=== PATIENT | female | born 1985 | race Hispanic/Latino ===

== ENCOUNTER 2020-08-24 10:17 | Emergency (ER) | payer OTHER ==
[~2020-08-24] VITALS: Ht 160 cm; Wt 102.1 kg
[2020-08-24 10:23] VITALS: BP 106/63
[2020-08-24] MEDS ORDERED: CETI10TA57 PO (10:46)
[2020-08-24] MEDS ORDERED: PRAZ1CAP5 PO (10:46)
[2020-08-24] MEDS ORDERED: SERT-438 PO (10:46)
[2020-08-24] MEDS ORDERED: ONDANSETRON HCL 4 MG/2 ML VIAL ONE (11:15)
[2020-08-24 11:35] LABS: BASOPHILS % (AUTO) 0.4 % (0.0-5.0); EOSINOPHILS % (AUTO) 0.1 % (0.0-8.0); HEMATOCRIT 39.8 % (36-48); MEAN CORPUSCULAR HEMOGLOBIN 30.5 pg (27.0-33.0); MEAN CORPUSCULAR HGB CONC 33.7 g/dL (32.0-36.0); MEAN CORPUSCULAR VOLUME 90.5 fL (79-99); MONOCYTES % (AUTO) 6.1 % (3.0-13.0); NEUTROPHILS % (AUTO) 77.2 % (40.0-77.0); PLATELET COUNT (AUTO) 335 K/uL (130-400); WHITE BLOOD COUNT (AUTO) 9.3 K/uL (4.8-10.8)
[2020-08-24 11:48] LABS: ABG BASE EXCESS -3.6 mmol/L (-2.0-3.0); ABG HCO3 21.2 mmol/L (21.0-28.0); ABG OXYGEN SATURATION 91.8 % (95.0-99.0); ABG PCO2 38 mmHg (32-45)
[2020-08-24 11:49] LABS: ALCOHOL, BLOOD 185 mg/dL (0-10)
[2020-08-24 11:51] LABS: ACETAMINOPHEN < 1 mcg/mL (10-30); SALICYLATE < 2.8 mg/dL (2.8-20.0)
[2020-08-24 11:54] LABS: CREATININE 0.9 mg/dL (0.5-1.5); POTASSIUM 3.2 mmol/L (3.5-5.1)
[2020-08-24 11:59] LABS: ALBUMIN 3.7 g/dL (3.5-5.0); BILIRUBIN,TOTAL 0.2 mg/dL (0.2-1.0); TOTAL PROTEIN, SERUM 7.9 g/dL (6.0-8.3)
[2020-08-24 12:03] LABS: INR 1.1 (0.85-1.15); PROTHROMBIN TIME 11.9 SEC (9.6-11.6)
[2020-08-24 12:05] LABS: PARTIAL THROMBOPLASTIN TIME 22.8 SEC (26.3-35.5)
[2020-08-24 13:01] LABS: APPEARANCE,URINE Clear (CLEAR); BILIRUBIN,URINE Negative (NEGATIVE); COLOR,URINE Dark Yellow (YELLOW); GLUCOSE, URINE (UA) Negative (NEGATIVE); KETONES,URINE Trace mg/dL (NEGATIVE); LEUKOCYTE ESTERASE ,URINE Small (NEGATIVE); NITRATE,URINE Negative (NEGATIVE); OCCULT BLOOD,URINE Negative (NEGATIVE); PH,URINE 5.5 (5.0-8.0); PROTEIN,URINE Trace mg/dL (NEGATIVE)
[2020-08-24 13:09] LABS: AMPHET/METH SCREEN,URINE NEGATIVE (NEGATIVE); BARBITURATE SCREEN, URINE NEGATIVE (NEGATIVE); BENZODIAZEPINES SCREEN,URINE POSITIVE (NEGATIVE); CANNABINOID SCREEN,URINE NEGATIVE (NEGATIVE); COCAINE SCREEN,URINE POSITIVE (NEGATIVE); OPIATE SCREEN,URINE NEGATIVE (NEGATIVE); PHENCYCLIDINE SCREEN,URINE NEGATIVE (NEGATIVE)
[2020-08-24 13:13] LABS: BACTERIA,URINE Rare /HPF (None Seen); MUCUS,URINE Moderate LPF (None Seen); RBC,URINE 0-1 /HPF (0-1); SQUAMOUS EPITHELIAL CELL,UR Few /HPF (0-2); WBC,URINE 0-1 /HPF (0-1)
[2020-08-24] MEDS ORDERED: KCL 20 MEQ ERTAB PO SCH (13:30)
[2020-08-24 14:00] VITALS: BP 112/63
[2020-08-24] MEDS ORDERED: LACTATED RINGERS 1000ML 1,000 ML IV SCH (14:30)
[2020-08-24] MEDS ORDERED: LACTATED RINGERS 1000ML 1,000 ML IV ONE (14:41)
[2020-08-24 16:49] VITALS: BP 112/61
[2020-08-24] MEDS ORDERED: ONDA4TAB4 PO (16:49)
[2020-08-24 16:50] VITALS: BP 112/63
== END 2020-08-24 18:48 | disposition home or self-care (01) ==
LOC: EDH 10:17
DX: E86.0 Dehydration (principal); E87.6 Hypokalemia; R55 Syncope and collapse; F10.229 Alcohol dependence with intoxication, unspecified; F14.10 Cocaine abuse, uncomplicated; Z20.822 Contact with and (suspected) exposure to COVID-19; F41.9 Anxiety disorder, unspecified; F31.9 Bipolar disorder, unspecified; G89.29 Other chronic pain; M54.9 Dorsalgia, unspecified; Z79.899 Other long term (current) drug therapy
CPT/HCPCS: 36415; 36600; 71045; 80053; 80305; 81001; 82803; 83605; 83735; 84703; 85025; 85610; 85730; 87040 ×2; 87426; 87635; 87804 ×2; 87880; 93005; 96361; 96374; 99285; C9803; G0481; J2405; J7120